=== PATIENT | female | born 1945 | race Caucasian/White ===

== ENCOUNTER 2017-04-07 02:36 | Observation (INO) ==
--- NOTE | 2017-04-07 02:37 | Emergency Department Note ---
Disposition Clinical Impression: Chest pain, rule out acute myocardial infarction Disposition: Admitted As Inpatient Condition: Fair General Adult HPI - General Chief complaint: ED Chest Pain Stated complaint: CP/DARION Time Seen by Provider: 04/07/17 02:37 - Related Data Home Medications Medication Instructions Recorded Confirmed Albuterol Neb [Proventil Neb] 2.5 mg IH Q4H PRN 01/05/16 01/05/16 Albuterol Sulfate [Proair Hfa] 2 puff IH Q6H PRN 01/05/16 01/05/16 Alendronate Sodium [Fosamax] 70 mg PO QWEEK 01/05/16 01/05/16 Calcium Carbonate/Vitamin D3 1 each PO BID 01/05/16 01/05/16 [Calcium 250+D Tablet] Docusate [Colace] 100 mg PO BID PRN 01/05/16 01/05/16 Fluticasone/Salmeterol [Advair 1 each IH BID 01/05/16 01/05/16 250-50 Diskus] Gabapentin [Neurontin] 600 mg PO TID 01/05/16 01/05/16 Montelukast [Singulair] 10 mg PO DAILY 01/05/16 01/05/16 Pravastatin Sodium [Pravachol] 40 mg PO DAILY 01/05/16 01/05/16 Sertraline [Zoloft] 200 mg PO DAILY 01/05/16 01/05/16 hydrOXYzine HCl [Hydroxyzine HCl] 12.5 - 50 mg PO Q6H PRN 01/05/16 01/05/16 traMADol [Ultram] 50 mg PO BID PRN 01/05/16 01/05/16 traZODone [TraZODone] 50 mg PO HS 01/05/16 01/05/16 Previous Rx's Medication Instructions Recorded Aspirin 81 mg PO DAILY #30 tab.chew 01/08/16 Clopidogrel [Plavix] 75 mg PO DAILY #30 tablet 01/08/16 Metoprolol XL (24 HR) Succ [Toprol 50 mg PO DAILY #30 tab.er.24h 01/08/16 Xl] Nicotine Patch [Nicoderm] 21 mg TD DAILY #21 patch.td24 01/08/16 Nitroglycerin 0.4 mg SL Q5MIN PRN #20 tab.subl 01/08/16 Allergies Allergy/AdvReac Type Severity Reaction Status Date / Time Oxycodone [From Percocet] AdvReac Itching Verified 01/05/16 20:41 Past Medical History - Past Medical History Medical history: Reports: arthritis, asthma, COPD, GERD, hyperlipidemia, hypertension, osteoporosis Surgical history: Reports: appendectomy Psychiatric history: Reports: anxiety, depression 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 - Social History Smoking Status: Current every day smoker Smokeless Tobacco Status: No Alcohol use: Reports: none Drug use: Reports: none Course Vital Signs Temperature 98.9 F 04/07/17 02:37 Pulse Rate 95 04/07/17 02:37 Respiratory Rate 18 04/07/17 02:37 Blood Pressure 135/79 04/07/17 02:37 O2 Sat by Pulse Oximetry 04/07/17 02:37 Temperature 98.9 F 04/07/17 05:57 Pulse Rate 04/07/17 02:37 Respiratory Rate 18 04/07/17 05:57 Blood Pressure 144/76 04/07/17 05:57 O2 Sat by Pulse Oximetry 04/07/17 02:37 Oxygen Delivery Oxygen Delivery Nasal Cannula Medical Decision Making - Lab Data Result diagrams: 04/07/17 03:25 04/07/17 03:25 Lab Results 04/07/17 04/07/17 04/07/17 Range/Units 03:25 03:25 03:25 WBC 10.3 (4.3-11.1) K/mcL RBC 4.70 (3.82-4.97) M/mcL Hgb 13.6 (11.5-15.4) g/dL Hct 42.2 (35.3-44.9) % MCV 89.8 (83.0-100.0) fL MCH 28.9 (28.0-33.3) pg MCHC 32.2 (31.6-35.5) g/dL RDW 12.4 (11.5-14.5) % Plt Count 247 (140-400) K/mcL MPV 10.6 (9.4-12.4) fL Immature Gran % 0.2 (0-4) % Seg Neutrophils % 66.6 % Lymphocytes % 21.5 % Monocytes % 9.5 % Eosinophils % 1.7 % Basophils % 0.5 % Neutrophils # 6.9 (1.6-8.9) K/mcL Lymphocytes # 2.2 (0.6-4.6) K/mcL Monocytes # 1.0 (0.0-1.3) K/mcL Eosinophils # 0.2 (0.0-0.6) K/mcL Basophils # 0.1 (0.0-0.2) K/mcL Sodium 138 (136-145) mEq/L Potassium 4.0 (3.5-4.5) mEq/L Chloride 103 (98-109) mEq/L Carbon Dioxide 27 (19-29) mEq/L BUN 8 (7-20) mg/dL Creatinine 0.90 (0.57-1.11) mg/dL Est GFR ( Amer) > 60 (> 60) Est GFR (Non-Af Amer) > 60 (> 60) BUN/Creatinine Ratio 9 (6-26) Glucose 97 (70-99) mg/dL Calculated Osmolality 284 (280-300) Calcium 9.2 (8.6-10.8) mg/dL Troponin I (0-0.03) ng/mL B-Natriuretic Peptide 216 H (0-100) pg/mL 04/07/17 Range/Units 03:25 WBC (4.3-11.1) K/mcL RBC (3.82-4.97) M/mcL Hgb (11.5-15.4) g/dL Hct (35.3-44.9) % MCV (83.0-100.0) fL MCH (28.0-33.3) pg MCHC (31.6-35.5) g/dL RDW (11.5-14.5) % Plt Count (140-400) K/mcL MPV (9.4-12.4) fL Immature Gran % (0-4) % Seg Neutrophils % % Lymphocytes % % Monocytes % % Eosinophils % % Basophils % % Neutrophils # (1.6-8.9) K/mcL Lymphocytes # (0.6-4.6) K/mcL Monocytes # (0.0-1.3) K/mcL Eosinophils # (0.0-0.6) K/mcL Basophils # (0.0-0.2) K/mcL Sodium (136-145) mEq/L Potassium (3.5-4.5) mEq/L Chloride (98-109) mEq/L Carbon Dioxide (19-29) mEq/L BUN (7-20) mg/dL Creatinine (0.57-1.11) mg/dL Est GFR ( Amer) (> 60) Est GFR (Non-Af Amer) (> 60) BUN/Creatinine Ratio (6-26) Glucose (70-99) mg/dL Calculated Osmolality (280-300) Calcium (8.6-10.8) mg/dL Troponin I 0.03 (0-0.03) ng/mL B-Natriuretic Peptide (0-100) pg/mL Attestation Statement - Attestation Attestation: I examined this patient and my medical decision-making was reviewed with the ELECTRICAL PROSPECTING ENGINEER/PA/Advanced Practice Nurse/Resident Physician. I agree with the documented findings, disposition and treatment plan as described except to the extent set forth below. [id number] time provided Patient presents from home by EMS for chest pain. She appears in no acute distress on exam
--- NOTE | 2017-04-07 02:45 | Emergency Department Note ---
Disposition Clinical Impression: Chest pain, rule out acute myocardial infarction Disposition: Admitted As Inpatient Condition: Fair Referrals: NO,PCP [Primary Care Provider] - Forms: ED Satisfaction Letter Chest Pain HPI - General Chief Complaint: ED Chest Pain Stated Complaint: CP/DARION Time Seen by Provider: 04/07/17 02:37 Vital Signs Reviewed: Yes Nursing Notes Reviewed: Yes - History of Present Illness HPI Narrative: 71-year-old female with a history of COPD and CAD with previous stent presents the emergency department with a chief complaint of abrupt onset chest pain. She was awake at home and developed acute chest tightness without radiation. She reports this being similar to her event that happened one year ago which she thinks was a heart attack and she had a catheterization with stent placement. After the pain began she took a nitroglycerin with some improvement. EMS provided 324 mg of aspirin and a second nitroglycerin tablet which again improved her symptoms. She had associated nausea without vomiting. She denies any diaphoresis. Denies any radiation to the back, ripping or tearing pain. Denies any new shortness of breath. Denies any history of blood clot or DVT. She continues to smoke cigarettes. She occasionally drinks vodka. - Related Data Home Medications Medication Instructions Recorded Confirmed Albuterol Neb [Proventil Neb] 2.5 mg IH Q4H PRN 01/05/16 01/05/16 Albuterol Sulfate [Proair Hfa] 2 puff IH Q6H PRN 01/05/16 01/05/16 Alendronate Sodium [Fosamax] 70 mg PO QWEEK 01/05/16 01/05/16 Calcium Carbonate/Vitamin D3 1 each PO BID 01/05/16 01/05/16 [Calcium 250+D Tablet] Docusate [Colace] 100 mg PO BID PRN 01/05/16 01/05/16 Fluticasone/Salmeterol [Advair 1 each IH BID 01/05/16 01/05/16 250-50 Diskus] Gabapentin [Neurontin] 600 mg PO TID 01/05/16 01/05/16 Montelukast [Singulair] 10 mg PO DAILY 01/05/16 01/05/16 Pravastatin Sodium [Pravachol] 40 mg PO DAILY 01/05/16 01/05/16 Sertraline [Zoloft] 200 mg PO DAILY 01/05/16 01/05/16 hydrOXYzine HCl [Hydroxyzine HCl] 12.5 - 50 mg PO Q6H PRN 01/05/16 01/05/16 traMADol [Ultram] 50 mg PO BID PRN 01/05/16 01/05/16 traZODone [TraZODone] 50 mg PO HS 01/05/16 01/05/16 Previous Rx's Medication Instructions Recorded Aspirin 81 mg PO DAILY #30 tab.chew 01/08/16 Clopidogrel [Plavix] 75 mg PO DAILY #30 tablet 01/08/16 Metoprolol XL (24 HR) Succ [Toprol 50 mg PO DAILY #30 tab.er.24h 01/08/16 Xl] Nicotine Patch [Nicoderm] 21 mg TD DAILY #21 patch.td24 01/08/16 Nitroglycerin 0.4 mg SL Q5MIN PRN #20 tab.subl 01/08/16 Allergies Allergy/AdvReac Type Severity Reaction Status Date / Time Oxycodone [From Percocet] AdvReac Itching Verified 01/05/16 20:41 All systems ED: reviewed and negative except as stated. Constitutional: Denies: fever Cardiovascular: Reports: chest pain. Denies: palpitations Respiratory: Reports: dyspnea (At baseline). Denies: cough Gastrointestinal: Reports: nausea. 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 S1, S2. No murmurs, rubs or gallops. Respiratory: Expiratory wheezing bilaterally without any respiratory distress. 95% on room air Abdomen: Soft, nontender. No guarding, rebound or rigidity. Eyes: Conjunctiva clear without scleral icterus HENT: Normocephalic, no signs of head injury. No oral mucosal lesions. Moist mucous membranes Neuro: No facial asymmetry, alert and appropriate. No motor or sensory deficits Musculoskeletal:There is no redness, swelling, edema, tenderness, asymmetry, pain along the venous system or any other sign of DVT. Skin: No lesions. No diaphoresis. Normal turgor. Normal color Psych: Appropriate Course Course Narrative: Presents with abrupt onset chest pain with known history of CAD. EKG shows a sinus rhythm with frequent previous CTs which are new from previous. Symptoms essentially resolved with nitroglycerin. EMS gave aspirin. I reviewed her heart catheterization from 12/2015 which shows multi vessel coronary disease including 90% in the distal LAD, 70% in the first diagonal, 80% mid circumflex and 50-60% and the proximal RCA. Her symptoms sound very concerning for ACS however her initial troponin was 0.03. She has been comfortable in the emergency department after nitroglycerin and pain free. Plan to admit for chest pain rule out. Patient stable at this time. Vital Signs Temperature 98.9 F 04/07/17 02:37 Pulse Rate 95 04/07/17 02:37 Respiratory Rate 18 04/07/17 02:37 Blood Pressure 135/79 04/07/17 02:37 O2 Sat by Pulse Oximetry 04/07/17 02:37 Temperature 98.9 F 04/07/17 02:37 Pulse Rate 95 04/07/17 02:37 Respiratory Rate 18 04/07/17 02:37 Blood Pressure 135/79 04/07/17 02:37 O2 Sat by Pulse Oximetry 04/07/17 02:37 Oxygen Delivery Oxygen Delivery Room Air Chest Pain - Lab Data Result diagrams: 04/07/17 03:25 04/07/17 03:25 Lab Results 04/07/17 04/07/17 04/07/17 Range/Units 03:25 03:25 03:25 WBC 10.3 (4.3-11.1) K/mcL RBC 4.70 (3.82-4.97) M/mcL Hgb 13.6 (11.5-15.4) g/dL Hct 42.2 (35.3-44.9) % MCV 89.8 (83.0-100.0) fL MCH 28.9 (28.0-33.3) pg MCHC 32.2 (31.6-35.5) g/dL RDW 12.4 (11.5-14.5) % Plt Count 247 (140-400) K/mcL MPV 10.6 (9.4-12.4) fL Immature Gran % 0.2 (0-4) % Seg Neutrophils % 66.6 % Lymphocytes % 21.5 % Monocytes % 9.5 % Eosinophils % 1.7 % Basophils % 0.5 % Neutrophils # 6.9 (1.6-8.9) K/mcL Lymphocytes # 2.2 (0.6-4.6) K/mcL Monocytes # 1.0 (0.0-1.3) K/mcL Eosinophils # 0.2 (0.0-0.6) K/mcL Basophils # 0.1 (0.0-0.2) K/mcL Sodium 138 (136-145) mEq/L Potassium 4.0 (3.5-4.5) mEq/L Chloride 103 (98-109) mEq/L Carbon Dioxide 27 (19-29) mEq/L BUN 8 (7-20) mg/dL Creatinine 0.90 (0.57-1.11) mg/dL Est GFR ( Amer) > 60 (> 60) Est GFR (Non-Af Amer) > 60 (> 60) BUN/Creatinine Ratio 9 (6-26) Glucose 97 (70-99) mg/dL Calculated Osmolality 284 (280-300) Calcium 9.2 (8.6-10.8) mg/dL Troponin I (0-0.03) ng/mL B-Natriuretic Peptide 216 H (0-100) pg/mL 04/07/17 Range/Units 03:25 WBC (4.3-11.1) K/mcL RBC (3.82-4.97) M/mcL Hgb (11.5-15.4) g/dL Hct (35.3-44.9) % MCV (83.0-100.0) fL MCH (28.0-33.3) pg MCHC (31.6-35.5) g/dL RDW (11.5-14.5) % Plt Count (140-400) K/mcL MPV (9.4-12.4) fL Immature Gran % (0-4) % Seg Neutrophils % % Lymphocytes % % Monocytes % % Eosinophils % % Basophils % % Neutrophils # (1.6-8.9) K/mcL Lymphocytes # (0.6-4.6) K/mcL Monocytes # (0.0-1.3) K/mcL Eosinophils # (0.0-0.6) K/mcL Basophils # (0.0-0.2) K/mcL Sodium (136-145) mEq/L Potassium (3.5-4.5) mEq/L Chloride (98-109) mEq/L Carbon Dioxide (19-29) mEq/L BUN (7-20) mg/dL Creatinine (0.57-1.11) mg/dL Est GFR ( Amer) (> 60) Est GFR (Non-Af Amer) (> 60) BUN/Creatinine Ratio (6-26) Glucose (70-99) mg/dL Calculated Osmolality (280-300) Calcium (8.6-10.8) mg/dL Troponin I 0.03 (0-0.03) ng/mL B-Natriuretic Peptide (0-100) pg/mL - EKG Data EKG results narrative: EKG shows a sinus rhythm with a rate of [address] elevation or depression. Intervals within normal limits. Frequent multifocal PVCs. Previous EKG shows similar wave morphology however PVCs were not present.
[2017-04-07 03:54] LABS: Basophils # 0.1 K/mcL (0.0-0.2); Basophils % 0.5 %; Eosinophils # 0.2 K/mcL (0.0-0.6); Eosinophils % 1.7 %; Hematocrit 42.2 % (35.3-44.9); Hemoglobin 13.6 g/dL (11.5-15.4); Immature Granulocytes % 0.2 % (0-4); Lymphocytes # 2.2 K/mcL (0.6-4.6); Lymphocytes % 21.5 %; Mean Corpuscular HGB Conc 32.2 g/dL (31.6-35.5); Mean Corpuscular Hemoglobin 28.9 pg (28.0-33.3); Mean Corpuscular Volume 89.8 fL (83.0-100.0); Mean Platelet Volume 10.6 fL (9.4-12.4); Monocytes % 9.5 %; Neutrophils # 6.9 K/mcL (1.6-8.9); Platelet Count 247 K/mcL (140-400); Red Cell Distribution Width 12.4 % (11.5-14.5); Segmented Neutrophils % 66.6 %
[2017-04-07 04:26] LABS: BUN/Creatinine Ratio 9 (6-26); Blood Urea Nitrogen 8 mg/dL (7-20); Calcium 9.2 mg/dL (8.6-10.8); Carbon Dioxide 27 mEq/L (19-29); Chloride 103 mEq/L (98-109); Glucose 97 mg/dL (70-99); Osmolality,Calculated 284 (280-300); Sodium 138 mEq/L (136-145); eGFR For African Americans > 60 (> 60); eGFR For Non-African Americans > 60 (> 60)
[2017-04-07] MEDS ORDERED: Naloxone 0.4 MG/ML INJ IVP PRN (08:37)
[2017-04-07] MEDS ORDERED: Ondansetron 4 MG/2 ML VIAL IVP PRN (08:37)
[2017-04-07] MEDS ORDERED: Acetaminophen 325 MG TABLET PO PRN (08:37)
[2017-04-07] MEDS ORDERED: Nitroglycerin 0.4 MG TAB.SUBL SL PRN ×2 (08:39→10:47)
[2017-04-07] MEDS ORDERED: Nicotine 21 MG PATCH.TD24 TD SCH (09:00)
--- NOTE | 2017-04-07 10:38 | Internal Med History&Physical ---
Date of Encounter: 04/07/17 Time of Encounter: 10:35 Assessment and Plan (1) Coronary artery disease Current visit: Yes Status: Acute Patient with known history of coronary artery disease with substernal chest pain at rest improved with nitroglycerin consistent with unstable angina. We will place patient on telemetry. Trend troponin. Consult cardiology. We will keep her nothing by mouth for possible stress test versus cardiac catheter. We will continue with aspirin beta elvin and statin. Qualifiers: Coronary Disease-Associated Artery/Lesion type: [place] artery [place] vs. transplanted heart: [place] heart Associated angina: with unstable angina Qualified Code(s): I25.110 - Atherosclerotic heart disease of [place] coronary artery with unstable angina pectoris (2) COPD (chronic obstructive pulmonary disease) Current visit: Yes Status: Acute Patient reports no worsening shortness of breath cough or sputum production. No evidence of acute exacerbation. We will treat her with inhaled albuterol and Atrovent. Qualifiers: COPD type: chronic bronchitis Chronic bronchitis type: simple Qualified Code(s): J41.0 - Simple chronic bronchitis (3) Chest pain, rule out acute myocardial infarction Current visit: Yes Status: Acute Likely secondary to coronary heart disease. She had an MO and stent placed in December 2015 and her EF was 35% of the time. We will monitor on telemetry, trend troponin. Obtain repeat echocardiogram. (4) Tobacco abuse Current visit: No Status: Acute I have advised smoking cessation and provided counseling. She does not want nicotine replacement therapy. Internal Medicine - H&P: HPI Chief complaint: Chest pain Admitted From: Emergency Dept Plans for Post Hospital Care: Home History of present illness: Ms. Ronquillo is a 71 year old female with past medical history significant for coronary artery disease status post MO and stent placement in December 2016, COPD and tobacco abuse who presented to the hospital for evaluation of chest pain. 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 The pain started at rest. She currently states that the pain has resolved. She denies shortness of breath, nausea, vomiting, diarrhea. A 10 point review of systems was negative except as above. Family history was reviewed and found to be noncontributory to this presentation due to the patient's advanced age. Past Med Surg Social Fam HX - Past Medical History Medical history: arthritis, asthma, COPD, GERD, hyperlipidemia, hypertension, osteoporosis Psychiatric history: anxiety, depression - Past Surgical History Surgical History: appendectomy - Social History Smoking Status: Current every day smoker Packs per day: 1 Smokeless Tobacco Status: No Alcohol use: none, occasionally Drug use: none - Family History Father Living Status: Hx Family Cardiac Disorders: Yes Internal Medicine - H&P: Meds Albuterol Neb [Proventil Neb] 2.5 mg IH Q4H PRN 01/05/16 [History] Albuterol Sulfate [Proair Hfa] 2 puff IH Q6H PRN 01/05/16 [History] Alendronate Sodium [Fosamax] 70 mg PO QWEEK 01/05/16 [History] Calcium Carbonate/Vitamin D3 [Calcium 250+D Tablet] 1 tab PO BID 01/05/16 [ History] Docusate [Colace] 100 mg PO BID PRN 01/05/16 [History] Fluticasone/Salmeterol [Advair 250-50 Diskus] 1 puff IH BID 01/05/16 [History] Gabapentin [Neurontin] 600 mg PO TID 01/05/16 [History] Montelukast [Singulair] 10 mg PO DAILY 01/05/16 [History] Sertraline [Zoloft] 100 mg PO DAILY 01/05/16 [History] hydrOXYzine HCl [Hydroxyzine HCl] 12.5 - 50 mg PO Q6H PRN 01/05/16 [History] traMADol [Ultram] 50 mg PO BID PRN 01/05/16 [History] traZODone [TraZODone] 50 mg PO HS 01/05/16 [History] Aspirin 81 mg PO DAILY #30 tab.chew 01/08/16 [Rx] Clopidogrel [Plavix] 75 mg PO DAILY #30 tablet 01/08/16 [Rx] Metoprolol XL (24 HR) Succ [Toprol Xl] 50 mg PO DAILY #30 tab.er.24h 01/08/16 [ Rx] Nitroglycerin 0.4 mg SL Q5MIN PRN #20 tab.subl 01/08/16 [Rx] Atorvastatin [Lipitor] 40 mg PO HS 04/07/17 [History] Dextran 70/Hypromellose [Artificial Tears Eye Drops] 1 drop BOTH EYES DAILY [History] Losartan [Cozaar] 25 mg PO DAILY 04/07/17 [History] [place]-3/Dha/Epa/Fish Oil [Fish Oil 1,000 mg Softgel] 1,000 mg PO DAILY 04/07/17 [History] Polyethylene Glycol 3350 [Purelax] 17 gm PO DAILY 04/07/17 [History] Allergies Oxycodone [From Percocet] Adverse Reaction (Verified 01/05/16 20:41) Itching All Systems PM: A 10-system review of systems was performed and is negative for pertinent findings except as documented above in the HPI. - Constitutional Vitals: Temp Pulse Resp BP Pulse Ox 97.9 F 75 15 134/96 96 04/07/17 07:22 04/07/17 07:22 04/07/17 07:22 04/07/17 07:22 04/07/17 07:22 General appearance: Present: A&O X 3, no acute distress - Neck Neck exam general surgery: Present: supple, trachea midline. Absent: lymphadenopathy - Cardiovascular Cardiovascular exam: Present: RRR, +S1, +S2. Absent: diastolic murmur, gallop, rubs, systolic murmur - GI/Abdominal GI/Abdominal exam: Present: normal bowel sounds, soft, no peritoneal signs. Absent: distended, tenderness - Extremities Exam Extremities exam: Present: warm, radial pulses palpable and symetrical. Absent : calf tenderness, cyanotic, pedal edema - Neurological Exam Neurological exam: Present: CN II-XII intact, oriented X3, no focal deficits. Absent: pronater drift, facial droop, speech deficit - Skin Skin exam: Present: dry, intact Internal Med - H&P Results - Labs CBC & Chem 7: 04/07/17 03:25 04/07/17 03:25 Labs: Cardiac Enzymes 04/07/17 Range/Units 09:35 Troponin I 0.01 (0-0.03) ng/mL - EKG Data -: EKG Interpreted by Myself (Normal sinus rhythm with frequent monomorphic PVCs , no ischemic changes) EKG shows normal: sinus rhythm, axis, ST-T waves
[2017-04-07] MEDS ORDERED: traMADol 50 MG TABLET PO PRN (10:47)
[2017-04-07] MEDS: Metoprolol XL (24 HR) Succ 50 MG TAB.ER.24H PO SCH (11:31)
[2017-04-07] MEDS: Aspirin 81 MG TAB.CHEW PO SCH (11:31)
[2017-04-07] MEDS: Gabapentin 300 MG CAPSULE PO SCH ×2 (15:47→21:35)
[2017-04-07] MEDS: Nicotine 21 MG PATCH.TD24 TD SCH (15:47)
--- NOTE | 2017-04-07 16:03 | Cardiology Consult Note ---
Date of Encounter: 04/07/17 Time of Encounter: 15:56 Assessment and Plan (1) Unstable angina Current Visit: Yes Status: Acute This is a resident progress note pending review by attending tester waste disposal leakage Patient symptoms are consistent with unstable angina Troponin-I: 0.03, 0.01 Patient's vital signs are stable and she is clinically stable Recommend cardiac stress test Discussion w patient/family: The assessment and plan as outlined above was discussed with the patient and/or family members who expressed understanding and agreement. All questions were answered. Thank you for involving us in the care of your patient. Please call with any questions. History of Present Illness Consult date: 04/07/17 Consult reason: Unstable Angina Chief complaint: Chest Pain History of present illness: Ms. Ronquillo is a 71 year old female with a past history of MD + stent December 2015 , COPD, current smoker who came to the ER because she was having substernal chest pain at rest early this morning, 4/10, pressure, no radiation. She took 2 of her nitroglycerin pills without significant improvement and called the squad. Subsequent nitroglycerin and aspirin were given and her chest pain improved significantly. She does relate that she has been having similar chest pain, although not as severe, for the past few months seems to have been worsening somewhat. She follows with [facility], Dr. Sheets. . Patient was seen and examined at bedside and denies chest pain, palpitations, shortness of breath, or other new symptoms since arriving at the hospital. Past Med Surg Social Fam HX - Past Medical History Medical history: arthritis, asthma, COPD, GERD, hyperlipidemia, hypertension, osteoporosis Psychiatric history: anxiety, depression - Past Surgical History Surgical History: appendectomy - Social History Smoking Status: Current every day smoker Packs per day: 1 Smokeless Tobacco Status: No Alcohol use: none, occasionally Drug use: none - Family History Father Living Status: Hx Family Cardiac Disorders: Yes Medications and Allergies Albuterol Neb [Proventil Neb] 2.5 mg IH Q4H PRN 01/05/16 [History] Albuterol Sulfate [Proair Hfa] 2 puff IH Q6H PRN 01/05/16 [History] Alendronate Sodium [Fosamax] 70 mg PO QWEEK 01/05/16 [History] Calcium Carbonate/Vitamin D3 [Calcium 250+D Tablet] 1 tab PO BID 01/05/16 [ History] Docusate [Colace] 100 mg PO BID PRN 01/05/16 [History] Fluticasone/Salmeterol [Advair 250-50 Diskus] 1 puff IH BID 01/05/16 [History] Gabapentin [Neurontin] 600 mg PO TID 01/05/16 [History] Montelukast [Singulair] 10 mg PO DAILY 01/05/16 [History] Sertraline [Zoloft] 100 mg PO DAILY 01/05/16 [History] hydrOXYzine HCl [Hydroxyzine HCl] 12.5 - 50 mg PO Q6H PRN 01/05/16 [History] traMADol [Ultram] 50 mg PO BID PRN 01/05/16 [History] traZODone [TraZODone] 50 mg PO HS 01/05/16 [History] Aspirin 81 mg PO DAILY #30 tab.chew 01/08/16 [Rx] Clopidogrel [Plavix] 75 mg PO DAILY #30 tablet 01/08/16 [Rx] Metoprolol XL (24 HR) Succ [Toprol Xl] 50 mg PO DAILY #30 tab.er.24h 01/08/16 [ Rx] Nitroglycerin 0.4 mg SL Q5MIN PRN #20 tab.subl 01/08/16 [Rx] Atorvastatin [Lipitor] 40 mg PO HS 04/07/17 [History] Dextran 70/Hypromellose [Artificial Tears Eye Drops] 1 drop BOTH EYES DAILY [History] Losartan [Cozaar] 25 mg PO DAILY 04/07/17 [History] [place]-3/Dha/Epa/Fish Oil [Fish Oil 1,000 mg Softgel] 1,000 mg PO DAILY 04/07/17 [History] Polyethylene Glycol 3350 [Purelax] 17 gm PO DAILY 04/07/17 [History] Allergies Oxycodone [From Percocet] Adverse Reaction (Verified 01/05/16 20:41) Itching All Systems Review: A 10-system review of systems was performed and is negative for pertinent findings except as documented above in the HPI. - Constitutional Constitutional: no chills, no fever(s) - Cardiovascular Cardiovascular: no chest pain at rest, no chest pain with exertion, no diaphoresis, no dyspnea at rest, no dyspnea on exertion, no leg edema, no lightheadedness, no syncope - Respiratory Respiratory: no cough, no dyspnea, no hemoptysis, no wheezing Physical Examination Vital Signs, Last 4 Hours Temp Pulse Resp BP Pulse Ox 04/07/17 15:10 98.2 F 68 15 136/81 87 General: Conversant, No Apparent Distress Cardiac: Reg Rate and Rhythm, Normal S1 and S2, No Murmur Lungs: Normal Breath Sounds, No Wheeze, Rales, Rhonchi Extremities: No Clubbing, No Cyanosis, No Edema, Normal Pulses Results 04/07/17 03:25 04/07/17 03:25 Lab Results 04/07/17 04/07/17 09:35 15:10 Troponin I 0.01 0.01 Consult Discharge Plan - Plan Referrals: NO,PCP [Primary Care Provider] -
[2017-04-07] MEDS ORDERED: traZODone 50 MG TABLET PO SCH (21:00)
[2017-04-07] MEDS: Budesonide/Formoterol 80/4.5 MDI IH SCH (22:44)
[2017-04-08 06:54] LABS: Basophils % 0.6 %; Eosinophils # 0.2 K/mcL (0.0-0.6); Eosinophils % 2.8 %; Hematocrit 41.1 % (35.3-44.9); Immature Granulocytes % 0.3 % (0-4); Lymphocytes # 1.8 K/mcL (0.6-4.6); Lymphocytes % 27.7 %; Mean Corpuscular HGB Conc 31.6 g/dL (31.6-35.5); Mean Corpuscular Hemoglobin 29.5 pg (28.0-33.3); Mean Corpuscular Volume 93.2 fL (83.0-100.0); Mean Platelet Volume 11.1 fL (9.4-12.4); Monocytes # 0.7 K/mcL (0.0-1.3); Monocytes % 10.3 %; Neutrophils # 3.7 K/mcL (1.6-8.9); Platelet Count 218 K/mcL (140-400); Red Blood Count 4.41 M/mcL (3.82-4.97); Red Cell Distribution Width 12.7 % (11.5-14.5); Segmented Neutrophils % 58.3 %
[2017-04-08 07:11] LABS: Calcium 9.4 mg/dL (8.6-10.8); Magnesium 1.9 mg/dL (1.6-2.6); Potassium 4.6 mEq/L (3.5-4.5)
[2017-04-08] MEDS ORDERED: 0.9 % Sodium Chloride 1,000 ML IVC SCH (09:00)
[2017-04-08] MEDS: Budesonide/Formoterol 80/4.5 MDI IH SCH (09:01)
[2017-04-08] MEDS ORDERED: Regadenoson 0.4 MG/5 ML SYRINGE IVP ONE (09:13)
[2017-04-08 11:37] VITALS: BP 125/49
[2017-04-08] MEDS: Metoprolol XL (24 HR) Succ 50 MG TAB.ER.24H PO SCH (11:59)
[2017-04-08] MEDS: Aspirin 81 MG TAB.CHEW PO SCH (11:59)
[2017-04-08] MEDS: Gabapentin 300 MG CAPSULE PO SCH (11:59)
[2017-04-08] MEDS: Nicotine 21 MG PATCH.TD24 TD SCH (11:59)
--- NOTE | 2017-04-08 12:37 | Electrocardiograph Report ---
[place] [id number] Test Date: 2017-04-07 Pat Name: Krysten Ronquillo Department: 105 Room: 3B Gender: F Inspecting Supervisor: YULIA : 1945 Requested By: Reggie Balbuena Order Number: [id number] Reading MD: Raciel Eagle Measurements Intervals [place] Rate: 90 P: 61 OK: 201 QRS: 37 QRSD: 81 T: 58 QT: 350 QTc: 398 Interpretive Statements SINUS RHYTHM WITH FREQUENT VENTRICULAR PREMATURE COMPLEXES POSSIBLE RIGHT VENTRICULAR CONDUCTION DELAY ABNORMAL RHYTHM ECG Electronically Signed On 04-08-2017 12:36:01 EDT by Raciel Eagle
--- NOTE | 2017-04-08 12:53 | Nuclear Medicine Stress Report ---
Regadenoson Nuclear Stress Name: Krysten Ronquillo Date of Study: 04/08/2017 Date: 1945 Ht: 51.0 in Medical Record#: [id number] Age: 71 Wt: 98.0 lb Gender: Female Order #: [id number] Location: [facility] Room: [facility] Supervising Provider: Mayur Sorensen CNP Reading Physician: Marcin Simons DO, FAC, [facility] Ordering Physician: Vanessa Perez CNP Primary Care Physician: None Stress Technologist: Jany Carter, CNC CUTTING OPERATOR Grease Remover: Flaquito Calixto Indications: Chest Pain Impression: Pharmacologic stress ECG is negative for ischemia at level of heart rate achieved. Gated EF = 73%. Medium sized, mild to moderate intensity, fixed defect involving the apex and surrounding apical segments. Wall motion is normal. These findings are consistent with artifact. Perfusion imaging was negative for ischemia or infarct. History: Hypertension Hypercholesteremia History of Smoking Stress Test Summary: Stress Test Type: Pharmacologic Regadenoson 0.4mg/5ml given IV Baseline Information: Initial Heart Rate: 57 Blood Pressure: 110/60 Stress Information: Test Terminated Due to (primary): As per protocol Maximum Blood Pressure: 94/58 Maximum Heart Rate: 78 Percent Maximum Heart Rate Achieved: 52 Double Product: 7332 METS Reached: 1 Symptoms: No chest symptoms Nuclear Summary: SPECT myocardial perfusion imaging using Tc99m Sestamibi given intravenously was performed at rest and following cardiac stress testing. The resting images were obtained following initial dose of 11 mCi. Following stress an additional dose of 32.8 mCi was given at peak exercise or 30 seconds post regadenoson infusion. Medication Given: Time Medication Dose Units Route Findings: Stress Note * Resting ECG demonstrated normal sinus rhythm. * No baseline arrhythmias were noted. * Pharmacologic stress ECG is negative for ischemia at level of heart rate achieved. * Occasional PVCs noted during stress. * Patient had no chest pain during stress. * Normal hemodynamic responses to pharmacologic stress. Study Quality * Study quality is average. Gated EF % * Gated EF = 73%. Left Ventricle * The left ventricle is not dilated. LVEDV = 56 mL. * Normal wall motion. Apical Perfusion Rest * The apex and surrounding apical segments demonstrate a mild to moderate reduction in perfusion. Apical Perfusion Stress * The apex and surrounding apical segments demonstrate a mild to moderate reduction in perfusion. TID * No evidence of transient ischemic dilatation. TID ratio = 1.29. Lung Uptake * There is no evidence of increase lung uptake. Updated by Marcin Simons DO, FARZANA, BASSAM, GAYLE on 04/08/2017 12:48:26 PM electronically signed on 04/08/2017 12:49:53 PM with status of Final
--- NOTE | 2017-04-08 13:04 | Cardiology Progress Note ---
Date of Encounter: 04/08/17 Time of Encounter: 13:01 Assessment and Plan (1) Chest pain, rule out acute myocardial infarction Current Visit: Yes Status: Acute Troponin negative x 2. EKG with no concerning ischemic changes. Typical chest pain symptoms described on admission. Now chest pain free. Stress test negative for ischemia or infarct. TTE shows improved LV function from previous report. EF 55% with SWMA. In December 2015 EF was 35% Continue medical management. Continue asa,plavix, statin, and bb. Add imdur. Cardiology will sign off. Out-pt f/u will be coordinated. (2) Coronary artery disease Current Visit: Yes Status: Acute H/o [place] and stents in December 2015. [facility] 12/2015: severe one vessel CAD s/p PTCA/BMS to proximal Right PLB. Moderate to severe two vessel CAD. EF 35%. FFR: 0.92 prox LAD, 0.93 prox RCA, 0.69 Right PLB (without adenosine). Echo 12/2015: EF 35-40% with regional wall motion abnormalities. Continue asa, plavix, statin and bb. Add imdur. Consider social work consult. Pt is not clear on what medications she is taking. Consider home health. Qualifiers: Coronary Disease-Associated Artery/Lesion type: [place] artery [place] vs. transplanted heart: [place] heart Associated angina: with unstable angina Qualified Code(s): I25.110 - Atherosclerotic heart disease of [place] coronary artery with unstable angina pectoris (3) Ischemic cardiomyopathy Current Visit: Yes Status: Acute EF previously 35% with WMA and now improved to 55%. Continue optimal medical therapy. Discussion w patient/family: The assessment and plan as outlined above was discussed with the patient and/or family members who expressed understanding and agreement. All questions were answered. Thank you for involving us in the care of your patient. Please call with any questions. Subjective Principal diagnosis: Chest pain Interval history: Patient seen in stress lab. Denies recurrent chest pain. She tells me she is able to take all of her prescribed medications as directed. She just cannot remember the names of them Objective Vital Signs, Last 4 Hours Temp Pulse Resp BP Pulse Ox 04/08/17 11:37 98.2 F 83 16 125/49 93 General: Conversant, No Apparent Distress HEENT: Atraumatic, Normocephaly, Mucus Membranes Moist Neck: No JVD, Normal carotid pulses Cardiac: Reg Rate and Rhythm, Normal S1 and S2, No Murmur Lungs: Normal Breath Sounds, No Wheeze, Rales, Rhonchi Neuro: Alert and responsive, No focal deficits noted Abdomen: Soft, Non-Tender Skin: No rashes noted on visualized skin Musculoskeletal: No Chest Wall Tenderness Extremities: No Clubbing, No Cyanosis, No Edema, Normal Pulses Results 04/08/17 05:53 04/08/17 05:53 Lab Results 04/07/17 04/08/17 04/08/17 15:10 05:53 05:53 WBC 6.4 Hgb 13.0 Hct 41.1 Plt Count 218 Sodium 138 Potassium 4.6 H Chloride 103 Carbon Dioxide 29 BUN 12 Creatinine 1.23 H Glucose 96 Calcium 9.4 Magnesium 1.9 Troponin I 0.01 - Imaging and Cardiology Stress Test: report reviewed Echo: report reviewed Consult Discharge Plan - Plan Referrals: NO,PCP [Primary Care Provider] -
[2017-04-08] MEDS ORDERED: Isosorbide MONOnitrate (24 HR) 30 MG TAB.ER.24H PO SCH (13:15)
--- NOTE | 2017-04-08 14:25 | Discharge Summary ---
Date of Encounter: 04/08/17 Time of Encounter: 13:30 - Discharge Diagnosis (1) Chest pain Priority: Primary Status: Resolved Comments: Patient denied chest pain on day of discharge. Echocardiogram revealing improved ejection fraction with impaired prior reports with ejection fraction of 55% and mild diastolic dysfunction. Patient euvolemic on examination. Seen and evaluated by cardiology who added Imdur to her regimen and cleared her for outpatient follow-up. Stress is negative. (2) Ischemic cardiomyopathy Priority: Secondary Status: Chronic (3) Coronary artery disease Priority: Secondary Status: Chronic Qualifiers: Coronary Disease-Associated Artery/Lesion type: [place] artery [place] vs. transplanted heart: [place] heart Associated angina: with unstable angina Qualified Code(s): I25.110 - Atherosclerotic heart disease of [place] coronary artery with unstable angina pectoris (4) COPD (chronic obstructive pulmonary disease) Priority: Secondary Status: Chronic Comments: No acute exacerbation. Patient denies shortness of breath above her normal Qualifiers: COPD type: chronic bronchitis Chronic bronchitis type: simple Qualified Code(s): J41.0 - Simple chronic bronchitis (5) HTN (hypertension) Priority: Secondary Status: Chronic Comments: Controlled, follow-up outpatient (6) Nicotine dependence with nicotine-induced disorder Priority: Secondary Status: Chronic Comments: Declined counseling - Discharge Medications Prescriptions: Isosorbide MONOnitrate (24 HR) [Imdur] 30 mg PO DAILY #30 tab.er.24h Home Medications: Albuterol Neb [Proventil Neb] 2.5 mg IH Q4H PRN 01/05/16 [History] Albuterol Sulfate [Proair Hfa] 2 puff IH Q6H PRN 01/05/16 [History] Alendronate Sodium [Fosamax] 70 mg PO QWEEK 01/05/16 [History] Calcium Carbonate/Vitamin D3 [Calcium 250+D Tablet] 1 tab PO BID 01/05/16 [ History] Docusate [Colace] 100 mg PO BID PRN 01/05/16 [History] Fluticasone/Salmeterol [Advair 250-50 Diskus] 1 puff IH BID 01/05/16 [History] Gabapentin [Neurontin] 600 mg PO TID 01/05/16 [History] Montelukast [Singulair] 10 mg PO DAILY 01/05/16 [History] Sertraline [Zoloft] 100 mg PO DAILY 01/05/16 [History] hydrOXYzine HCl [Hydroxyzine HCl] 12.5 - 50 mg PO Q6H PRN 01/05/16 [History] traMADol [Ultram] 50 mg PO BID PRN 01/05/16 [History] traZODone [TraZODone] 50 mg PO HS 01/05/16 [History] Aspirin 81 mg PO DAILY #30 tab.chew 01/08/16 [Rx] Clopidogrel [Plavix] 75 mg PO DAILY #30 tablet 01/08/16 [Rx] Metoprolol XL (24 HR) Succ [Toprol Xl] 50 mg PO DAILY #30 tab.er.24h 01/08/16 [ Rx] Nitroglycerin 0.4 mg SL Q5MIN PRN #20 tab.subl 01/08/16 [Rx] Atorvastatin [Lipitor] 40 mg PO HS 04/07/17 [History] Dextran 70/Hypromellose [Artificial Tears Eye Drops] 1 drop BOTH EYES DAILY [History] Losartan [Cozaar] 25 mg PO DAILY 04/07/17 [History] [place]-3/Dha/Epa/Fish Oil [Fish Oil 1,000 mg Softgel] 1,000 mg PO DAILY 04/07/17 [History] Polyethylene Glycol 3350 [Purelax] 17 gm PO DAILY 04/07/17 [History] Isosorbide MONOnitrate (24 HR) [Imdur] 30 mg PO DAILY #30 tab.er.24h 04/08/17 [ Rx] Allergies/Adverse Reactions: Allergies Oxycodone [From Percocet] Adverse Reaction (Verified 01/05/16 20:41) Itching Procedures/tests Complete & Pending: Procedures Performed prior 72 hours Category Date Time Status NM yoel perf SPECT multi [NM] Routine Exams 04/08/17 08:56 Taken EV echocardiogram Routine Y 04/07/17 10:47 Completed SP pharm nuclear stress Routine Y 04/08/17 08:56 Completed Date of admission: 04/07/17 05:28 Primary care physician: PCP NO Consults: 04/07/17 10:34 Consult to Cardiology [CONS] Routine Comment: Consulting Provider: Cardiology Desi Reason for Consult: Unstable angina Time Notified: 10:35 Call Completed: Yes Discharging clinician: Vanessa Perez Anticipated date of discharge: 04/08/17 - Patient Status Disposition: Home, Self-Care Condition: Fair Functional capacity at discharge: independent ambulation Overall status at discharge: patient is back to baseline - Discharge Instructions Follow Up With: Crystal Connell [Non-Partnered Physician] - Phillip Sheets MD [Partnered Physician] - Additional Instructions: Follow-up with your primary care provider within one to 2 weeks, follow-up with cardiology in 2-3 weeks - Diet and Activity Activity: increase activity as tolerated Diet: low fat, low cholesterol, low salt diet Hospital course: Ms. Ronquillo is a 71 year old female with past medical history of CAD status post stent, COPD, tobacco abuse, GERD, hypertension, hyperlipidemia. Patient presented to the emergency department chief complaint of chest pain. She had an [facility] and a stent placed in December 2016. She reported sudden onset of pressure- like and burning substernal chest pain that started on the morning of presentation and lasted approximately 30 minutes and was associated with lightheadedness. The pain started at rest. Pain had resolved prior to presentation. She denies shortness of breath, nausea, vomiting, or diarrhea. Workup in the emergency department unremarkable. Chest x-ray negative. Patient was admitted to the hospitalist service for further evaluation and management. Troponins were negative nuclear stress test was negative. Her echocardiogram revealed an improvement in her ejection fraction now at 55%, was 35% on prior readings. Patient had mild acute kidney injury during this admission which was treated with IV fluids and her arb was held. She denied chest pain or shortness of breath above her normal throughout this admission. Cardiology was brought on board who recommended medical management with the addition of Imdur to her regimen and cleared her for outpatient follow-up. She was discharged home in stable condition with close outpatient follow-up recommended. ITS Impressions Chest X-Ray 04/07/17 02:54 IMPRESSION: No acute disease. Hiatal hernia. D/ / Dimitri Brown MD / Dimitri Brown MD Interpreting Provider: Dimitri Brown MD Echocardiogram impressions: LVEF 55%. Normal LV chamber size, wall thickness and overall function. Segmental left ventricular systolic dysfunction. Mild left ventricular diastolic dysfunction. Normal right ventricular structure and function. Mild pulmonary hypertension. No significant valvular dysfunction. Overall, LV function has improved compared to prior reports. Regadenosen nuclear stress impression: Pharmacologic stress ECG is negative for ischemia at level heart rate achieved. Gated ejection fraction equals 73%. Medium size, mild to moderate intensity, fixed defect involving the apex and surrounding the apical segments. Wall motion is normal. These findings are consistent with artifact. Perfusion imaging was negative for ischemia or infarct. - Time Spent with Patient Total time spent providing and/or coordinating discharge services: - Constitutional Vitals: Temp Pulse Resp BP Pulse Ox 98.2 F 83 16 125/49 93 04/08/17 11:37 04/08/17 11:37 04/08/17 11:37 04/08/17 11:37 04/08/17 11:37 General appearance: Present: A&O X 3, pleasant, no acute distress, underweight, answers questions appropriately - Head Head exam: Present: atraumatic, normocephalic - Eye Eye exam: Present: PERRL, conjuntiva pink, sclera anicteric Pupils: Present: PERRL - Neck Neck exam general surgery: Present: supple, trachea midline. Absent: lymphadenopathy - Respiratory Respiratory exam: Present: decreased breath sounds. Absent: accessory muscle use, rales, respiratory distress, rhonchi, wheezes - Cardiovascular Cardiovascular exam: Present: RRR, +S1, +S2. Absent: diastolic murmur, gallop, rubs, systolic murmur - GI/Abdominal GI/Abdominal exam: Present: normal bowel sounds, soft, no peritoneal signs. Absent: distended, tenderness - Extremities Exam Extremities exam: Present: warm, radial pulses palpable and symetrical. Absent : calf tenderness, cyanotic, pedal edema - Neurological Exam Neurological exam: Present: alert, CN II-XII intact, normal gait, oriented X3, no focal deficits, strengths equal and symetr throughout. Absent: pronater drift, facial droop, speech deficit - Skin Skin exam: Present: dry, intact, normal color, warm
== END 2017-04-08 15:23 | disposition home or self-care (01) ==
LOC: 3BNU 02:36 → EMEROO 02:36 → 3BNU 07:00
PROVIDERS: ADMIT Internal Medicine; ATTEND Nurse Practitioner Family

== ENCOUNTER 2018-10-29 03:38 | Inpatient (IN) ==
[2018-10-29] MEDS ORDERED: predniSONE 20 MG TABLET PO ONE (03:47)
[2018-10-29] MEDS ORDERED: 0.9 % Sodium Chloride 1,000 ML IVC ONE (03:47)
[2018-10-29] MEDS ORDERED: Ipratropium/Albuterol Neb 3 ML IH ONE (03:47)
--- NOTE | 2018-10-29 03:52 | Emergency Department Note ---
Disposition Clinical Impression: Weakness, Laceration COPD (chronic obstructive pulmonary disease) Qualifiers: COPD type: unspecified COPD Qualified Code(s): J44.9 - Chronic obstructive pulmonary disease, unspecified Hypertension Qualifiers: Hypertension type: unspecified Qualified Code(s): I10 - Essential (primary) hypertension Fall Qualifiers: Encounter type: initial encounter Qualified Code(s): W19.XXXA - Unspecified fall, initial encounter Disposition: Admitted As Inpatient Condition: Fair Time of Disposition: 06:23 General Adult HPI - General Chief complaint: ED Weakness Stated complaint: General Time Seen by Provider: 10/29/18 03:41 Source: patient Mode of arrival: ambulatory Limitations: no limitations Nursing Notes Reviewed: Yes Vital Signs Reviewed: Yes - History of Present Illness HPI Narrative: 72-year-old female with a history of hypertension, COPD, CAD presents for evaluation of dyspnea. Patient presents via EMS. EMS state that the patient is complaining of shortness of breath. Patient does not provide an accurate history. States that she feels short of breath today. Patient denies any productive cough. Denies history of any chest pain. Patient denies any abdominal pain. No nausea or vomiting. Patient states he does have breathing treatments at home. EMS reported the patient was complaining that she is having difficulty walking however was able to walk to the stretcher. Patient was placed on oxygen. No interventions in route otherwise. Patient does live at home by herself. - Related Data Home Medications Medication Instructions Recorded Confirmed RX: Albuterol Neb [Proventil Neb] 2.5 mg IH Q4H PRN 01/05/16 10/29/18 RX: Albuterol Sulfate [Proair Hfa] 2 puff IH Q6H PRN 01/05/16 10/29/18 RX: Calcium Carbonate/Vitamin D3 1 tab PO BID 01/05/16 10/29/18 [Calcium 250+D Tablet] RX: Fluticasone/Salmeterol [Advair 1 puff IH BID 01/05/16 10/29/18 250-50 Diskus] RX: Atorvastatin [Lipitor] 40 mg PO HS 04/07/17 10/29/18 RX: Bupropion HCl [Wellbutrin Xl] 300 mg PO DAILY 07/03/18 10/29/18 RX: Memantine HCl 10 mg PO DAILY 07/03/18 10/29/18 RX: Multivitamin [One Daily 1 each PO DAILY 07/03/18 10/29/18 Essential] RX: Donepezil [Aricept] 10 mg PO DAILY 10/29/18 10/29/18 predniSONE [PredniSONE] 5 - 40 mg PO AD 10/29/18 10/29/18 Previous Rx's Medication Instructions Recorded RX: Aspirin 81 mg PO DAILY #30 tab.chew 01/08/16 RX: Clopidogrel [Plavix] 75 mg PO DAILY #30 tablet 01/08/16 RX: Nitroglycerin 0.4 mg SL Q5MIN PRN #20 tab.subl 01/08/16 Allergies Allergy/AdvReac Type Severity Reaction Status Date / Time oxycodone [From Percocet] AdvReac Itching Verified 07/03/18 17:57 All systems ED: reviewed and negative except as stated. Constitutional: Denies: fever Cardiovascular: Denies: chest pain Respiratory: Reports: cough, dyspnea. 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 - Social History Smoking Status: Current every day smoker Smokeless Tobacco Status: No Alcohol use: Reports: none Drug use: Reports: none Physical Exam - General Limitations: no limitations General appearance: alert, in no apparent distress, cachectic, other (Chronically ill) - Head Head exam: atraumatic, normocephalic, normal inspection - Eye Eye exam: Present: normal appearance, PERRL, EOMI - ENT ENT exam: normal exam - Neck Neck exam: Present: normal inspection - Chest Chest inspection: Present: normal inspection, symmetric chest wall rise - Respiratory Respiratory exam: Present: wheezes (Left sided expiratory), accessory muscle use, prolonged expiratory phase. Absent: respiratory distress - Cardiovascular Cardiovascular exam: Present: regular rate, normal rhythm. Absent: systolic murmur - Abdominal Exam Abdominal exam: Present: soft, Non-Tender - Extremities Exam Extremities exam: Present: normal inspection. Absent: pedal edema - Back Exam Back exam: Present: normal inspection - Neurological Exam Neurological exam: Present: alert, oriented X3, CN II-XII intact - Skin Skin exam: Present: warm, dry, intact, normal color Course Course Narrative: Patient seen and examined. Patient is alert however the patient is difficult historian. Does have known history of COPD. On exam the patient does have a symmetric breath sounds. Patient will get aerosols steroids cardiopulmonary evaluation. Disposition pending. - Reevaluation(s) Reevaluation #1: Patient's resting comfortably. Lung exam is improved. Time: 05:20 Reevaluation #2: Patient attempted to use the rest room and hit her head against the commode. Patient will require laceration repair as well as CT of the head. Ice for hematoma. Time: 05:42 Reevaluation #3: Patient's blood pressure was elevated. Will dose with labetalol. Time: 06:23 Vital Signs Temperature 97.6 F 10/29/18 03:48 Pulse Rate 78 10/29/18 03:48 Respiratory Rate 16 10/29/18 03:48 Blood Pressure 203/94 10/29/18 03:48 O2 Sat by Pulse Oximetry 99 10/29/18 03:48 Temperature 97.6 F 10/29/18 03:48 Pulse Rate 89 10/29/18 06:15 Respiratory Rate 15 10/29/18 06:15 Blood Pressure 190/97 10/29/18 06:15 O2 Sat by Pulse Oximetry 98 10/29/18 06:15 Oxygen Delivery Oxygen Delivery Room Air Procedures - Laceration Laceration 1 Site: face Size (cm): 2 Description: linear Depth: simple, single layer, [id number] Local Anesthetic: with epi Amount of Anesthesia Used (mL): 3 Pre-repair: wound explored, irrigated extensively, extensive debridement Skin layer closed with: nylon Size: 4-0 Number of sutures/samir: 4 Technique: simple, interrupted Medical Decision Making - MDM Narrative Medical decision making narrative: Patient care for concerns of difficulty breathing. Patient does have long- standing history of COPD. Concerns initially for subjective dyspnea. Patient does appear to have increased work of breathing at bedside that appears to be intermittent. Patient was exam reveals wheezing. Patient is elderly and there is concerns of possible ACS equivalent. Patient was treated with aerosols and steroids. Patient states that her breathing did improve however given the patient's history and extensive COPD with possible ACS equivalent the patient will be admitted for continued cardiopulmonary evaluation. Patient was given azithromycin for possible COPD exacerbation. Patient medication list reviewed. Patient does live at home with some family. However the patient likely has an element of dementia and is not able to provide a very thorough or accurate history. Given these findings and the patient's comorbidities patient will be admitted for continued respiratory support monitoring. Patient attempted ambulatory trial to the restroom however the patient fell striking her head. Incident report was filed. Patient does have a history of being on aspirin and Plavix. Patient does have hematoma sutures. - Lab Data Lab results reviewed: Yes I reviewed the patient's lab results. Result diagrams: 10/30/18 04:04 10/30/18 04:04 Lab Results 10/29/18 10/29/18 10/29/18 Range/Units 04:10 04:10 04:10 WBC 13.1 H (4.3-11.1) K/mcL RBC 4.84 (3.82-4.97) M/mcL Hgb 14.1 (11.5-15.4) g/dL Hct 42.6 (35.3-44.9) % MCV 88.0 (83.0-100.0) fL MCH 29.1 (28.0-33.3) pg MCHC 33.1 (31.6-35.5) g/dL RDW 13.6 (11.5-14.5) % Plt Count 305 (140-400) K/mcL MPV 9.4 (9.4-12.4) fL Immature Gran % 0.4 (0-4) % Seg Neutrophils % 82.9 % Lymphocytes % 8.5 % Monocytes % 8.0 % Eosinophils % 0.1 % Basophils % 0.1 % Neutrophils # 10.8 H (1.6-8.9) K/mcL Lymphocytes # 1.1 (0.6-4.6) K/mcL Monocytes # 1.0 (0.0-1.3) K/mcL Eosinophils # 0.0 (0.0-0.6) K/mcL Basophils # 0.0 (0.0-0.2) K/mcL Sodium Cancelled Potassium Cancelled Chloride Cancelled Carbon Dioxide Cancelled BUN Cancelled Creatinine Cancelled Est GFR ( Amer) Cancelled Est GFR (Non-Af Amer) Cancelled BUN/Creatinine Ratio Cancelled Glucose Cancelled Calculated Osmolality Cancelled Calcium Cancelled Magnesium Cancelled Troponin I < 0.03 (< 0.04) ng/mL B-Natriuretic Peptide 205 H (Less than 100) pg/mL Specimen Rejected 10/29/18 10/29/18 Range/Units 04:10 04:50 WBC (4.3-11.1) K/mcL RBC (3.82-4.97) M/mcL Hgb (11.5-15.4) g/dL Hct (35.3-44.9) % MCV (83.0-100.0) fL MCH (28.0-33.3) pg MCHC (31.6-35.5) g/dL RDW (11.5-14.5) % Plt Count (140-400) K/mcL MPV (9.4-12.4) fL Immature Gran % (0-4) % Seg Neutrophils % % Lymphocytes % % Monocytes % % Eosinophils % % Basophils % % Neutrophils # (1.6-8.9) K/mcL Lymphocytes # (0.6-4.6) K/mcL Monocytes # (0.0-1.3) K/mcL Eosinophils # (0.0-0.6) K/mcL Basophils # (0.0-0.2) K/mcL Sodium 132 L Potassium 4.0 Chloride 95 L Carbon Dioxide 27 BUN 13 Creatinine 0.76 Est GFR ( Amer) > 60 Est GFR (Non-Af Amer) > 60 BUN/Creatinine Ratio 17 Glucose 137 H Calculated Osmolality 276 L Calcium 9.8 Magnesium 1.8 Troponin I (< 0.04) ng/mL B-Natriuretic Peptide (Less than 100) pg/mL Specimen Rejected Hemolyzed - Radiology Data Radiology results reviewed: Yes I reviewed the patient's radiology results. Chest X-Ray 10/29/18 03:47 IMPRESSION: Previously seen left basilar airspace disease has nearly resolved. Hyperinflated lungs could reflect deep inspiratory effort versus obstructive small airways disease such as asthma or COPD. Moderate size gas-filled hiatus hernia. D/ / Constantin Collado / Constantin Collado Interpreting Provider: Constantin Collado - EKG Data EKG #1 EKG attestation: Yes I reviewed and interpreted this EKG. EKG shows normal: sinus rhythm Rate: normal Rhythm: NSR [place]/QRS: normal QTc: other (539) When compared to previous EKG there are: no significant changes S.B.A.Yo. - S.Abril Situation: Demographics Background: Presenting Complaint Assessment: Vital Signs, Course and respsone to treatment, Patient/Family Expectation Recommendation: Barrier(s) to disposition, Recommendation based on pending studies, treatments, or consults [facility] Report Given to: Dr. Anne Schmid Repor Time: 06:20 Attestation Statement - Attestation Attestation: Resident Attestation: I examined this patient and my medical decision making was reviewed with the Resident Physician. I agree with the documented findings, disposition and treatment plan as described except to the extent set forth below. We independently had [id number] contact with the patient. Patient arrived via EMS for complaints of shortness of breath. Patient does have a history of COPD. On exam she states that she has trouble getting a full breath of air in. She does have some associated wheezing throughout the anterior posterior lung redman. Patient's breathing is slightly abnormal as she appears to have breath-holding spells where she then states that she cannot get her breath but then takes a deep breath after short breath-holding. Patient will undergo further evaluation for dyspnea. Steroids and breathing treatments as well as reevaluation's. Mild distress secondary to feeling that she cannot get a full breath, breath- holding spells associated with then full deep breaths, mild anterior and posterior wheezing worse on the left, no significant peripheral edema.
[2018-10-29 04:23] LABS: Basophils % 0.1 %; Eosinophils % 0.1 %; Hematocrit 42.6 % (35.3-44.9); Hemoglobin 14.1 g/dL (11.5-15.4); Immature Granulocytes % 0.4 % (0-4); Lymphocytes # 1.1 K/mcL (0.6-4.6); Lymphocytes % 8.5 %; Mean Corpuscular HGB Conc 33.1 g/dL (31.6-35.5); Mean Corpuscular Hemoglobin 29.1 pg (28.0-33.3); Mean Platelet Volume 9.4 fL (9.4-12.4); Neutrophils # 10.8 K/mcL (1.6-8.9); Platelet Count 305 K/mcL (140-400); Red Blood Count 4.84 M/mcL (3.82-4.97); Red Cell Distribution Width 13.6 % (11.5-14.5); Segmented Neutrophils % 82.9 %
[2018-10-29 05:07] LABS: BUN/Creatinine Ratio 17 (6-26); Blood Urea Nitrogen 13 mg/dL (8-23); Calcium 9.8 mg/dL (8.6-10.3); Carbon Dioxide 27 mEq/L (23-29); Chloride 95 mEq/L (98-107); Glucose 137 mg/dL (70-105); Magnesium 1.8 mg/dL (1.6-2.6); Osmolality,Calculated 276 (280-300); Sodium 132 mEq/L (136-145); eGFR For Non-African Americans > 60 (> 60)
[2018-10-29] MEDS ORDERED: Azithromycin 250 MG TABLET PO ONE (05:12)
[2018-10-29] MEDS ORDERED: Lidocaine/EPI 1:100k 1% 30 ML VIAL ONE (05:50)
[2018-10-29] MEDS ORDERED: *HR* Labetalol 20 MG/4 ML SYRINGE IVP ONE (06:21)
[2018-10-29] MEDS ORDERED: Naloxone 0.4 MG/ML INJ IVP PRN (09:14)
--- NOTE | 2018-10-29 09:19 | Internal Med History&Physical ---
Date of Encounter: 10/29/18 Time of Encounter: 09:19 Internal Medicine - H&P: HPI Chief complaint: Dyspnea Admitted From: Emergency Dept Plans for Post Hospital Care: Home History of present illness: Ms. Ronquillo is a 72 year old female past medical history of hypertension COPD CAD dementia presented to [facility] ED after experiencing dyspnea she was a 9% on room air lab work did show slightly elevated white count chest x-ray shows previously seen left basilar airspace disease nearly resolved I briefly lungs reflex deep and tore a effort versus obstructive small airway disease such as asthma or COPD moderate size gas-filled hiatus hernia. She was given steroids as well as breathing treatments and antibiotics While in the ER the patient went to the bathroom and had an episode where she fell and struck her head Sustained a left frontal scalp laceration requiring sutures. CT of head was obtained which showed a large left frontal scalp contusion no fractures she was admitted for further workup of COPD exacerbation. Currently patient is sitting up in bed does not appear to be any respiratory distress she does have a large ecchymosis to left side of face left eye swollen shut and orbits is ecchymotic. She has a small laceration above left eyebrow with sutures. She is oriented to name and place. I explained to complain to the patient who verbalized understanding Past Med Surg Social Fam HX - Past Medical History Medical history: arthritis, asthma, COPD, GERD, hyperlipidemia, hypertension, myocardial infarction, osteoporosis Psychiatric history: anxiety, depression - Past Surgical History Surgical History: appendectomy Additional surgical history: cardiac cath x 1stent - Social History Smoking Status: Current every day smoker Smokeless Tobacco Status: No Alcohol use: none Drug use: none - Family History Father Living Status: Hx Family Cardiac Disorders: Yes Hx Family Cancer: Yes Internal Medicine - H&P: Meds Albuterol Neb [Proventil Neb] 2.5 mg IH Q4H PRN 01/05/16 [History] Albuterol Sulfate [Proair Hfa] 2 puff IH Q6H PRN 01/05/16 [History] Calcium Carbonate/Vitamin D3 [Calcium 250+D Tablet] 1 tab PO BID 01/05/16 [History] Fluticasone/Salmeterol [Advair 250-50 Diskus] 1 puff IH BID 01/05/16 [History] Aspirin 81 mg PO DAILY #30 tab.chew 01/08/16 [Rx] Clopidogrel [Plavix] 75 mg PO DAILY #30 tablet 01/08/16 [Rx] Nitroglycerin 0.4 mg SL Q5MIN PRN #20 tab.subl 01/08/16 [Rx] Atorvastatin [Lipitor] 40 mg PO HS 04/07/17 [History] Bupropion HCl [Wellbutrin Xl] 300 mg PO DAILY 07/03/18 [History] Memantine HCl 10 mg PO DAILY 07/03/18 [History] Multivitamin [One Daily Essential] 1 each PO DAILY 07/03/18 [History] Donepezil [Aricept] 10 mg PO DAILY 10/29/18 [History] predniSONE [PredniSONE] 5 - 40 mg PO AD 10/29/18 [History] Allergy/AdvReac Type Severity Reaction Status Date / Time oxycodone [From Percocet] AdvReac Itching Verified 07/03/18 17:57 ROS unobtainable: due to mental status All Systems PM: A 10-system review of systems was performed and is negative for pertinent findings except as documented above in the HPI. - Constitutional Vitals: Temp Pulse Resp BP Pulse Ox 97.6 F 76 16 180/101 97 10/29/18 03:48 10/29/18 08:45 10/29/18 08:45 10/29/18 08:45 10/29/18 08:45 General appearance: Present: A&O X 2 Exam: . - Head Head exam: Present: atraumatic, normocephalic - Expanded Head Exam Head exam expanded: Present: hematoma, laceration - Eye Eye exam: Present: periorbital swelling, periorbital tenderness, conjuntiva pink, sclera anicteric Additional comments: Patient unable to open left eye she has ecchymosis and left orbit is edematous - Neck Neck exam general surgery: Present: supple, trachea midline. Absent: lymphadenopathy - Respiratory Respiratory exam: Present: decreased breath sounds, prolonged expiratory phase. Absent: accessory muscle use, rales, rhonchi, wheezes - Cardiovascular Cardiovascular exam: Present: RRR, +S1, +S2. Absent: diastolic murmur, gallop, rubs, systolic murmur - GI/Abdominal GI/Abdominal exam: Present: normal bowel sounds, soft, no peritoneal signs. Absent: distended, tenderness - Extremities Exam Extremities exam: Present: warm, radial pulses palpable and symmetrical. Absent: calf tenderness, cyanotic, pedal edema - Neurological Exam Neurological exam: Present: CN II-XII intact, no focal deficits. Absent: pronater drift, facial droop, speech deficit - Skin Skin exam: Present: dry, intact Internal Med - H&P Results - Labs CBC & Chem 7: 10/29/18 04:10 10/29/18 04:10 Labs: Short CBC 10/29/18 Range/Units 04:10 WBC 13.1 H (4.3-11.1) K/mcL Hgb 14.1 (11.5-15.4) g/dL Hct 42.6 (35.3-44.9) % Plt Count 305 (140-400) K/mcL Neutrophils # 10.8 H (1.6-8.9) K/mcL BMP 10/29/18 10/29/18 04:10 04:10 Sodium Cancelled 132 L Potassium Cancelled 4.0 Chloride Cancelled 95 L Carbon Dioxide Cancelled 27 BUN Cancelled 13 Creatinine Cancelled 0.76 Glucose Cancelled 137 H Calcium Cancelled 9.8 Cardiac Enzymes 10/29/18 Range/Units 04:10 Troponin I < 0.03 (< 0.04) ng/mL - EKG Data EKG shows normal: sinus rhythm - EKG Data EKG comments: 10/29/18 18:05 Prolonged QTc interval of 539 - Impressions ITS Impressions Chest X-Ray 10/29/18 03:47 IMPRESSION: Previously seen left basilar airspace disease has nearly resolved. Hyperinflated lungs could reflect deep inspiratory effort versus obstructive small airways disease such as asthma or COPD. Moderate size gas-filled hiatus hernia. D/ / Constantin Collado / Constantin Collado Interpreting Provider: Constantin Collado Head CT 10/29/18 05:25 IMPRESSION: Large left frontal scalp contusion. No underlying displaced calvarial fracture or acute intracranial abnormality. Included globes and orbits are intact. D/ / Constantin Collado / Constantin Collado Interpreting Provider: Constantin Collado - Assessment and plan (1) COPD exacerbation Current Visit: Yes Status: Acute Assessment and plan: Patient has a history of COPD presents with increasing shortness of breath on exertion. Oxygen titrated to maintain SaO2 greater than 88% Prednisone 40 mg daily steroid burst Bronchodilators as needed Rocephin IV and azithromycin was given in the ER how patient does have a prolonged QT interval so we will hold that for now (2) Syncope Current Visit: Yes Status: Suspected Assessment and plan: Patient sustained a fall in the bathroom and sure if this was a syncopal episode or mechanical fall we will perform a syncopal workup. Check echo carotid Doppler as well as orthostatic vital signs placed on fall precautions Qualifiers: Syncope type: unspecified Qualified Code(s): R55 - Syncope and collapse (3) DVT prophylaxis Current Visit: Yes Status: Acute Assessment and plan: SCDs (4) Fall Current Visit: Yes Status: Acute Assessment and plan: Patient sustained a fall while in the bathroom and short this was a syncopal episode or mechanical we will perform syncopal workup. Continue with neurological checks since patient did strike her head. CT of head was negative for any bleed or fracture. Place patient on fall precautions Consult PT and OT for evaluation patient is living at home alone Qualifiers: Encounter type: initial encounter Qualified Code(s): W19.XXXA - Unspecified fall, initial encounter (5) Laceration Current Visit: Yes Status: Acute Assessment and plan: Patient sustained laceration after syncopal episode in the bathroom. She has had 3 stitches which we will monitor keep open to air at this time (6) HTN (hypertension) Current Visit: Yes Status: Chronic Assessment and plan: Patient did have elevated blood pressure on arrival review of records does not show any antihypertensive. We will give hydralazine when necessary for systolic greater than 180. We will initiate patient on lisinopril 5 mg in the a.m. continue to monitor closely. Qualifiers: Hypertension type: unspecified Qualified Code(s): I10 - Essential (primary) hypertension (7) Dementia Current Visit: No Status: Acute Assessment and plan: Patient has a history of dementia and is on medical mean as well as Aricept. She does have a prolonged QT which we will hold Aricept for now Qualifiers: Dementia type: unspecified type Dementia behavioral disturbance: without behavioral disturbance Qualified Code(s): F03.90 - Unspecified dementia without behavioral disturbance (8) EKG abnormality Current Visit: Yes Status: Acute Assessment and plan: The patient has QTC prolongation on EKG-QTC 539 previous EKG obtained and June 2017 shows QTC of 482-patient is on Aricept for her dementia which we will hold. She also received a dose of azithromycin in the ER we will hold azithromycin and give Rocephin for COPD exacerbation. Continue to monitor EKG in the a.m. Continuous cardiac monitoring - Time Spent With Patient Total time spent is greater than 50% in coordination of care (as documented) at patient's floor/unit and/or counseling patient:
[2018-10-29] MEDS: Acetaminophen 325 MG TABLET PO PRN (14:08)
--- NOTE | 2018-10-29 15:27 | Electrocardiograph Report ---
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
[2018-10-29] MEDS: Ipratropium/Albuterol Neb 3 ML IH SCH ×2 (19:35→23:53)
[2018-10-29] MEDS: Budesonide/Formoterol 80/4.5 MDI IH SCH (19:35)
[2018-10-29] MEDS: cefTRIAXone 1,000 MG in Water for inj. (sterile) 20 ML 10 ML IVP SCH (21:16)
[2018-10-30] MEDS: Ipratropium/Albuterol Neb 3 ML IH SCH ×6 (04:23→23:45)
[2018-10-30] MEDS: Acetaminophen 325 MG TABLET PO PRN (04:39)
[2018-10-30 04:44] LABS: Basophils % 0.1 %; Eosinophils % 0.2 %; Hematocrit 39.4 % (35.3-44.9); Hemoglobin 13.5 g/dL (11.5-15.4); Immature Granulocytes % 0.4 % (0-4); Lymphocytes # 2.2 K/mcL (0.6-4.6); Lymphocytes % 17.2 %; Mean Corpuscular HGB Conc 34.3 g/dL (31.6-35.5); Mean Corpuscular Hemoglobin 29.7 pg (28.0-33.3); Mean Corpuscular Volume 86.6 fL (83.0-100.0); Mean Platelet Volume 9.6 fL (9.4-12.4); Monocytes # 1.3 K/mcL (0.0-1.3); Monocytes % 10.1 %; Neutrophils # 9.1 K/mcL (1.6-8.9); Platelet Count 328 K/mcL (140-400); Red Blood Count 4.55 M/mcL (3.82-4.97)
[2018-10-30 05:03] LABS: BUN/Creatinine Ratio 16 (6-26); Blood Urea Nitrogen 14 mg/dL (8-23); Calcium 9.4 mg/dL (8.6-10.3); Carbon Dioxide 30 mEq/L (23-29); Chloride 94 mEq/L (98-107); Glucose 85 mg/dL (70-105); Osmolality,Calculated 272 (280-300); Sodium 131 mEq/L (136-145); eGFR For Non-African Americans > 60 (> 60)
[2018-10-30] MEDS: Budesonide/Formoterol 80/4.5 MDI IH SCH ×2 (07:26→20:25)
[2018-10-30] MEDS ORDERED: Azithromycin 500 MG in D5% in Water 250 ML IVPB SCH (09:00)
[2018-10-30] MEDS: Multivit/Ca/Min/Fe/FA 1 TAB TABLET PO SCH (09:03)
[2018-10-30] MEDS: Aspirin 81 MG TAB.CHEW PO SCH (09:03)
[2018-10-30] MEDS: Cholecalciferol (D-3) 1,000 UNIT TABLET PO SCH (09:04)
[2018-10-30] MEDS: BuPROPion XL (24 HR) 150 MG TABLET PO SCH (09:04)
[2018-10-30] MEDS: predniSONE 20 MG TABLET PO SCH (09:04)
--- NOTE | 2018-10-30 12:35 | Internal Med Progress Note ---
<Andrew Hannah P - Last Filed: 10/30/18 15:49> Hospitalist Progress Note - Encounter Date of Encounter: 10/30/18 Time of Encounter: 10:45 - Subjective Interval History: 72 year old female past medical history of arthritis, asthma, COPD, GERD, hyperlipidemia, hypertension, myocardial infarction, osteoporosis presented to ED for dyspnea on exertion,dizziness, generalized weakness, h/o fall. The patient stated that she fell at restroom while she felt dizzy and hit her head. Head CT:Large left frontal scalp contusion,no calvarial fracture or acute intracranial abnormality with globes and orbits are intact.Chest x-ray showed :previously seen left basilar airspace disease with hyperinflated lungs could be obstructive small airways disease such as asthma or COPD. labs at ED showed elevated total count 13.1 and neutrophil 10.8 sodium 132 and potassium 4.0, BNP 205. Today during my bedside visit, the patient was lying comfortably on the bed, she did not have any new complaints. Well oriented to time place and person and answering question appropriately. she stated that her symptom has been much better since admission. She was concerned about progressing bluish-black discoloration around both eye. She denied any chest pain, elevated shortness of breath, feeling dizzy, any episode of vertigo. Her vitals were stable (temperature 98 F, blood pressure 141/80, sat 96% in room air). - Exam Vitals: Temp Pulse Resp BP Pulse Ox 98.4 F 85 17 141/80 96 10/30/18 10:38 10/30/18 10:38 10/30/18 11:47 10/30/18 10:38 10/30/18 11:47 Exam: Gen: Alert, awake , Oriented to time,place and person HEENT; Scalp laceration ++., Bluish black discoularion in right and left eye (left> right ) extending up to proximal neck. Chest: Diminished BS b/l, No crackles, No rales, No wheezing Heart: S1S2+ RRR No Murmurs Abd: Soft, NT, BS + No organomegaly Ext: No edema, pulses are palpable, no tenderness Neuro: No focal neuro deficits Psych: Normal mood Skin: No rash - Assessment and Plan (1) Fall Current Visit: Yes Status: Acute Assessment and Plan: Patient sustained a fall while in the bathroom after she had a syncopal episode CT of head was negative for any bleed or fracture. patient on fall precautions, multiple scalp laceration and progressive periorbital hematoma , will take sometime to resolve. Consulted PT and OT for evaluation as patient is living at home alone, will assess neurological status. (2) Dementia Current Visit: Yes Status: Acute Assessment and Plan: She is chronic patient of dementia, she is on Mementine & Donepezil (3) COPD (chronic obstructive pulmonary disease) Current Visit: No Status: Chronic Assessment and Plan: Patient has a history of COPD presents with increasing shortness of breath on ex ertion. She is a chronic smoker,Chest Xray :Previously seen left basilar airspace disease has nearly resolved,hyperinflated lungs could reflect deep inspiratory effort vs obstructive small airways disease such as asthma or COPD At ED ,She is on ceftriaxone IV, holded azithromycin because of QT prolongation. Nebulization, Symbicort puff, oral prednisone, IV antibiotic: Ceftriaxone IV and oxygen Symptomatically improved since admission (4) Syncope Current Visit: Yes Status: Acute Assessment and Plan: The patient has history of feeling dizzy and fall at rest room, it might be because of dropping of her blood pressure or postural hypotension. We will regularly monitor her blood pressure, postural drop and her antihypertensive medications status. (5) HTN (hypertension) Current Visit: Yes Status: Chronic Assessment and Plan: The patient has history of high blood pressure on medication, the patient was admitted while she presents to ED, her recent blood pressure is 141/80, she is on hydralazine and lisinopril (6) Coronary artery disease Current Visit: No Status: Chronic Assessment and Plan: The patient chronic patient of CAD , she is on aspirin, Plavix, Lipitor (7) Laceration of scalp Current Visit: Yes Status: Acute Assessment and Plan: The patient fell at rest-room after feeling dizzy , CT head : no acute intracranial abnormality and fracture. Multiple lacerations and progressive periorbital hemotoma is present , needs a few days to get resolved .No any worsening neurological symptoms. (8) QT prolongation Current Visit: Yes Status: Acute Assessment and Plan: The patient has QTC prolongation on EKG: EKG QTC 539 and previously 1 was 482 1 years back. We have hold azithromycin is it might be the cause of progression of QT. (9) Pneumonia Current Visit: Yes Status: Acute Assessment and Plan: The patient has shortness of breath and chest discomfort X-ray chest showed bibasilar airspace disease, suggestive of early pneumonia We have put her on IV antibiotic; IV ceftriaxone - Time Spent with Patient Total time spent is greater than 50% in coordination of care (as documented) at patient's floor/unit and/or counseling patient: Internal Medicine: Result - Labs CBC & Chem 7: 10/30/18 04:04 10/30/18 04:04 Labs: Short CBC 10/30/18 Range/Units 04:04 WBC 12.6 H (4.3-11.1) K/mcL Hgb 13.5 (11.5-15.4) g/dL Hct 39.4 (35.3-44.9) % Plt Count 328 (140-400) K/mcL Neutrophils # 9.1 H (1.6-8.9) K/mcL BMP 10/30/18 04:04 Sodium 131 L Potassium 4.0 Chloride 94 L Carbon Dioxide 30 H BUN 14 Creatinine 0.90 Glucose 85 Calcium 9.4 Consult Discharge Plan - Plan Referrals: NONE,PCP [Primary Care Provider] - <Mario Bazan - Last Filed: 10/30/18 16:05> Hospitalist Progress Note - Encounter Date of Encounter: 10/30/18 - Exam Vitals: Temp Pulse Resp BP Pulse Ox 98.3 F 90 17 121/61 96 10/30/18 15:47 10/30/18 15:47 10/30/18 15:47 10/30/18 15:47 10/30/18 15:47 - Assessment and Plan (1) HTN (hypertension) Current Visit: Yes Status: Chronic (2) Dementia Current Visit: No Status: Acute (3) Fall Current Visit: Yes Status: Acute (4) Laceration Current Visit: Yes Status: Acute (5) COPD exacerbation Current Visit: Yes Status: Acute (6) Syncope Current Visit: Yes Status: Suspected (7) DVT prophylaxis Current Visit: Yes Status: Acute (8) EKG abnormality Current Visit: Yes Status: Acute - Time Spent with Patient Total time spent is greater than 50% in coordination of care (as documented) at patient's floor/unit and/or counseling patient: Internal Medicine: Result - Labs CBC & Chem 7: 10/30/18 04:04 10/30/18 04:04 Labs: Short CBC 10/30/18 Range/Units 04:04 WBC 12.6 H (4.3-11.1) K/mcL Hgb 13.5 (11.5-15.4) g/dL Hct 39.4 (35.3-44.9) % Plt Count 328 (140-400) K/mcL Neutrophils # 9.1 H (1.6-8.9) K/mcL BMP 10/30/18 04:04 Sodium 131 L Potassium 4.0 Chloride 94 L Carbon Dioxide 30 H BUN 14 Creatinine 0.90 Glucose 85 Calcium 9.4 - Impressions Impressions Echocardiogram 10/30/18 17:51 Impressions: Sinus tachycardia. LVEF 55%. LV segmental wall motion abnormality as seen in the diagram below. Mild left ventricular diastolic dysfunction. Normal right ventricular structure and function. Extra-cardiac structure partially compressing left atrium possibly due to hiatal hernia. Consider dedicated CT chest imaging. Mild mitral regurgitation. No pulmonary hypertension. Left Ventricular Wall Motion: Rest Echo Findings The basal inferior, mid inferior lateral and basal inferior lateral steen were hypokinetic. All other wall segments showed normal motion. Findings: Study Quality * Technically adequate exam. ECG Findings * Sinus tachycardia. Left Ventricle * Mild left ventricular diastolic dysfunction. * LVEF 55%. * Normal LV chamber size and wall thickness. * No LVOTO. Right Ventricle * Normal right ventricular structure and function. Left Atrium * Mildly dilated left atrium. In some views, it appears partially compressed. Right Atrium * Normal right atrial size. Mitral Valve * Normal mitral valve structure. * No mitral stenosis. * Mild mitral regurgitation. Aortic Valve * No aortic regurgitation. * Aortic valve not well visualized. * No aortic stenosis. Tricuspid Valve * Trace tricuspid regurgitation. * Normal tricuspid valve structure. * Estimated RA pressure is 3 mmHg. * Estimated RVSP is 32 mmHg. * No pulmonary hypertension. Pulmonic Valve * Pulmonic valve is not well visualized. * No pulmonic stenosis. * No pulmonic regurgitation. Pulmonary Artery * Pulmonary artery not well visualized. Aorta * Normally sized aortic root. Pericardium * There is no pericardial effusion present. Interatrial Septum * Interatrial septum not well evaluated. IVC * Normal IVC dimensions and inspiratory collapse. - Attending Attestation I examined this patient and my medical decision-making was reviewed with the Resident Physician Dr. Hannah. I agree with the documented findings, disposition and treatment plan as described except to the extent set forth below. Ms. Ronquillo is a 72 year old female past medical history of hypertension COPD, CAD, dementia presented to [facility] ED after experiencing dyspnea. She was given steroids as well as breathing treatments and antibiotics While in the ER the patient went to the bathroom and had an episode where she fell and struck her head Sustained a left frontal scalp laceration requiring sutures. CT of head was obtained which showed a large left frontal scalp contusion no fractures she was admitted for further workup of COPD exacerbation. Pt stated she is feeling better today. She is breathing comfortably on room air. She still has a large ecchymosis to left side of face left eye swollen . She has a small laceration above left eyebrow with sutures. She is oriented to name and place. Chest: Diminished BS b/l mild wheezing, no crackles Heart: S1S2+ RRR No murmurs a/p 1. Acute COPD exacerbation 2. Acute bronchitis cont empirical abx Rocephin PO Steroids + bronchodilators 3. Syncope mostly orthostatic will follow-up on echocardiogram and carotid Doppler 4. Prolonged QT interval will repeat EKG today 5. Fall with Facial laceration 6. Scalp hematoma Improving PT / OT eval Patient does need to stay in the hospital more than 2 midnights due to her complex medical problems. So will change her to full admission today. I did review my colleague BETINA Thomas's H & P including HPI, PMH, PSH, FH, SH, and ROS no changes noticed <Andrew Hannah P - Last Filed: 10/30/18 15:49> (3) COPD (chronic obstructive pulmonary disease) Qualifiers: COPD type: COPD with acute exacerbation Qualified Code(s): J44.1 - Chronic obstructive pulmonary disease with (acute) exacerbation (5) HTN (hypertension) Qualifiers: Hypertension type: unspecified Qualified Code(s): I10 - Essential (primary) hypertension (6) Coronary artery disease Qualifiers: Coronary Disease-Associated Artery/Lesion type: [place] artery [place] vs. transplanted heart: [place] heart Associated angina: without angina Qualified Code(s): I25.10 - Atherosclerotic heart disease of [place] coronary artery without angina pectoris <Mario Bazan - Last Filed: 10/30/18 16:05> (1) HTN (hypertension) Qualifiers: Hypertension type: unspecified Qualified Code(s): I10 - Essential (primary) hypertension (2) Dementia Qualifiers: Dementia type: unspecified type Dementia behavioral disturbance: without behavioral disturbance Qualified Code(s): F03.90 - Unspecified dementia without behavioral disturbance (3) Fall Qualifiers: Encounter type: initial encounter Qualified Code(s): W19.XXXA - Unspecified fall, initial encounter (6) Syncope Qualifiers: Syncope type: unspecified Qualified Code(s): R55 - Syncope and collapse
[2018-10-30 17:27] LABS: Calcium 9.5 mg/dL (8.6-10.3); Potassium 4.2 mEq/L (3.5-5.1)
[2018-10-30] MEDS: cefTRIAXone 1,000 MG in Water for inj. (sterile) 20 ML 10 ML IVP SCH (20:02)
[2018-10-31] MEDS: Ipratropium/Albuterol Neb 3 ML IH SCH ×3 (03:50→11:20)
[2018-10-31] MEDS: Acetaminophen 325 MG TABLET PO PRN (05:07)
[2018-10-31] MEDS: Budesonide/Formoterol 80/4.5 MDI IH SCH (07:26)
--- NOTE | 2018-10-31 08:30 | Discharge Summary ---
<Andrew Hannah P - Last Filed: 10/31/18 11:35> - NOTES TO OUTPATIENT PROVIDER Notes to Outpatient Provider: *The patient was follow-up with her primary care provider within a week. Orders not resulted at time of discharge: Pending orders 10/30/18 06:00 EKG [ECG 12 lead ECG] [ECG] AM 0600 Date of Encounter: 10/31/18 Time of Encounter: 08:00 - Discharge Diagnosis (1) Fall Priority: Primary Status: Acute Qualifiers: Encounter type: initial encounter Qualified Code(s): W19.XXXA - Unspecified fall, initial encounter (2) Dementia Priority: Secondary Status: Chronic Qualifiers: Alzheimer's disease onset: unspecified onset Dementia behavioral disturbance: without behavioral disturbance Qualified Code(s): G30.9 - Alzheimer's disease, unspecified; F02.80 - Dementia in other diseases classified elsewhere without behavioral disturbance (3) COPD (chronic obstructive pulmonary disease) Priority: Primary Status: Chronic Qualifiers: COPD type: COPD with acute exacerbation Qualified Code(s): J44.1 - Chronic obstructive pulmonary disease with (acute) exacerbation (4) Syncope Priority: Primary Status: Acute Qualifiers: Syncope type: unspecified Qualified Code(s): R55 - Syncope and collapse (5) Pneumonia Priority: Primary Status: Acute Qualifiers: Pneumonia type: due to unspecified organism Qualified Code(s): J18.9 - Pneumonia, unspecified organism (6) HTN (hypertension) Priority: Secondary Status: Chronic Qualifiers: Hypertension type: unspecified Qualified Code(s): I10 - Essential (primary) hypertension (7) Coronary artery disease Priority: Secondary Status: Chronic Qualifiers: Coronary Disease-Associated Artery/Lesion type: [place] artery [place] vs. transplanted heart: [place] heart Associated angina: without angina Qualified Code(s): I25.10 - Atherosclerotic heart disease of [place] coronary artery without angina pectoris (8) Laceration of scalp Priority: Primary Status: Chronic Qualifiers: Encounter type: subsequent encounter Qualified Code(s): S01.01XD - Laceration without foreign body of scalp, subsequent encounter (9) QT prolongation Priority: Primary Status: Resolved Hospital course: Ms. Ronquillo is a 72 year old female with past medical history of arthritis, asthma, COPD, GERD, hyperlipidemia, hypertension, myocardial infarction, osteoporosis presented to ED for exertional dyspnea,feeling dizzy,generalized weakness, occasional fall in the past .The patient stated that she fell at restroom after she felt dizzy and hit her head. Head CT done in ED:Large left frontal scalp contusion,no calvarial fracture or acute intracranial abnormality with globes and orbits are intact.Chest x-ray showed :previously seen left basilar airspace disease with hyperinflated lungs could be obstructive small airways disease such as asthma or COPD.Lab reports done in ED elevated total count 13.1 and neutrophil 10.8, sodium 132 and potassium 4.0, BNP 205. The patient was admitted in inpatient and started IV antibiotic ceftriaxone and oral prednisone .Echo done in inpatient showed : LVEF 55%. LV segmental wall motion abnormality & mild left ventricular diastolic dysfunction.Carotid Doppler showed :Right proximal ICA has a severe, 60-79% stenosis. Left proximal ICA has a moderate, 40-59% stenosis. After admission the patient has been significantly improved, her dyspnea and weakness has been better. She still has multiple small scalp lacerations and bluish discoloration around both eye after fall injury and progressively getting better. She is clinically stable, her vitals are normal. We are planning to discharge her and she will follow-up with her primary care provider within a week. - Time Spent with Patient Total time spent providing and/or coordinating discharge services: - Discharge Medications Prescriptions: Cefdinir [Omnicef] 300 mg PO BID 3 Days #6 capsule Home Medications: RX: Albuterol Neb [Proventil Neb] 2.5 mg IH Q4H PRN 01/05/16 [History] RX: Albuterol Sulfate [Proair Hfa] 2 puff IH Q6H PRN 01/05/16 [History] RX: Calcium Carbonate/Vitamin D3 [Calcium 250+D Tablet] 1 tab PO BID 01/05/16 [History] RX: Fluticasone/Salmeterol [Advair 250-50 Diskus] 1 puff IH BID 01/05/16 [History] RX: Aspirin 81 mg PO DAILY #30 tab.chew 01/08/16 [Rx] RX: Clopidogrel [Plavix] 75 mg PO DAILY #30 tablet 01/08/16 [Rx] RX: Nitroglycerin 0.4 mg SL Q5MIN PRN #20 tab.subl 01/08/16 [Rx] RX: Atorvastatin [Lipitor] 40 mg PO HS 04/07/17 [History] RX: Bupropion HCl [Wellbutrin Xl] 300 mg PO DAILY 07/03/18 [History] RX: Memantine HCl 10 mg PO DAILY 07/03/18 [History] RX: Multivitamin [One Daily Essential] 1 each PO DAILY 07/03/18 [History] RX: Donepezil [Aricept] 10 mg PO DAILY 10/29/18 [History] RX: predniSONE [PredniSONE] 5 - 40 mg PO AD 10/29/18 [History] Cefdinir [Omnicef] 300 mg PO BID 3 Days #6 capsule 10/31/18 [Rx] Allergies/Adverse Reactions: Allergy/AdvReac Type Severity Reaction Status Date / Time oxycodone [From Percocet] AdvReac Itching Verified 07/03/18 17:57 Date of admission: 10/30/18 09:54 Primary care physician: PCP NONE Consults: 10/29/18 09:16 Consult to Occupational Therapy [CONS] Routine Comment: Evaluate, develop and implement POC Reason for Consult: weakness Does patient have active BEDREST order?: No Is patient medically & hemodynamically stable?: Yes Patient assessed for mobility or mobilized this visit?: No Consult to Physical Therapy [CONS] Routine Comment: Evaluate, develop and implement POC Reason for Consult: weakness Does patient have active BEDREST order?: No Is patient medically & hemodynamically stable?: Yes Patient assessed for mobility or mobilized this visit?: No - Constitutional Vitals: Temp Pulse Resp BP Pulse Ox 98.4 F 97 12 137/55 93 10/31/18 05:06 10/31/18 05:06 10/31/18 07:28 10/31/18 05:06 10/31/18 07:28 General appearance: Present: A&O X 2, A&O X 3, no acute distress, answers questions appropriately Exam: Gen: Alert, awake , Oriented to time,place and person HEENT; Scalp laceration ++., Bluish black discoularion in right and left eye (left> right ) extending up to proximal neck. Chest: Diminished BS b/l, No crackles, No rales, No wheezing Heart: S1S2+ RRR No Murmurs Abd: Soft, NT, BS + No organomegaly Ext: No edema, pulses are palpable, no tenderness Neuro: No focal neuro deficits Psych: Normal mood Skin: No rash - Patient Status Disposition: Home Health Service Condition: Fair Functional capacity at discharge: uses cane/walker Overall status at discharge: patient is progressing back to baseline - Discharge Instructions Instructions: Fall Prevention (DC) Follow Up With: Kobi Palumbo MD [Partnered Physician] - 11/06/18 9:45 am <Mario Bazan - Last Filed: 10/31/18 16:12> Orders not resulted at time of discharge: Pending orders 10/30/18 06:00 EKG [ECG 12 lead ECG] [ECG] AM 0600 Date of Encounter: 10/31/18 - Discharge Diagnosis (1) HTN (hypertension) Status: Chronic Qualifiers: Hypertension type: unspecified Qualified Code(s): I10 - Essential (primary) hypertension (2) Dementia Status: Acute Qualifiers: Dementia type: unspecified type Dementia behavioral disturbance: without behavioral disturbance Qualified Code(s): F03.90 - Unspecified dementia without behavioral disturbance (3) Fall Status: Acute Qualifiers: Encounter type: initial encounter Qualified Code(s): W19.XXXA - Unspecified fall, initial encounter (4) Laceration Status: Acute (5) COPD exacerbation Status: Acute (6) Syncope Status: Suspected Qualifiers: Syncope type: unspecified Qualified Code(s): R55 - Syncope and collapse (7) DVT prophylaxis Status: Acute (8) EKG abnormality Status: Acute Hospital course: Ms. Ronquillo is a 72 year old female - Time Spent with Patient Total time spent providing and/or coordinating discharge services: Date of admission: 10/30/18 09:54 Primary care physician: PCP NONE Consults: 10/29/18 09:16 Consult to Occupational Therapy [CONS] Routine Comment: Evaluate, develop and implement POC Reason for Consult: weakness Does patient have active BEDREST order?: No Is patient medically & hemodynamically stable?: Yes Patient assessed for mobility or mobilized this visit?: No Consult to Physical Therapy [CONS] Routine Comment: Evaluate, develop and implement POC Reason for Consult: weakness Does patient have active BEDREST order?: No Is patient medically & hemodynamically stable?: Yes Patient assessed for mobility or mobilized this visit?: No 10/31/18 11:20 Consult to Instrument Checker [CONS] Routine Reason for SW Consult: need HH - Constitutional Vitals: Temp Pulse Resp BP Pulse Ox 98.2 F 99 17 115/61 96 10/31/18 12:55 10/31/18 09:04 10/31/18 12:55 10/31/18 12:55 10/31/18 12:55 - Attending Attestation I examined this patient and my medical decision-making was reviewed with the Resident Physician Dr. Hannah. I agree with the documented findings, disposition and treatment plan as described except to the extent set forth below. Ms. Ronquillo is a 72 year old female past medical history of hypertension COPD, CAD, dementia presented to [facility] ED after experiencing dyspnea. She was given steroids as well as breathing treatments and antibiotics While in the ER the patient went to the bathroom and had an episode where she fell and struck her head Sustained a left frontal scalp laceration requiring sutures. CT of head was obtained which showed a large left frontal scalp contusion no fractures she was admitted for further workup of COPD exacerbation. Pt stated she is feeling better today. She is breathing comfortably on room air. She still has a large ecchymosis to left side of face left eye swollen . She has a small laceration above left eyebrow with sutures. She is oriented x 3 Chest: Diminished BS b/l mild wheezing, no crackles Heart: S1S2+ RRR No murmurs a/p 1. Acute COPD exacerbation 2. Acute bronchitis Improving mostly bacterial bronchitis switched to PO Abx PO Steroids + bronchodilators 3. Syncope mostly orthostatic 4. Prolonged QT interval Resolved 5. Fall with Facial laceration 6. Scalp hematoma Improving Medically stable to d/c home today Addendum entered and electronically signed by Andrew Hannah 10/31/18 16:25: I am the Author of this note.
[2018-10-31] MEDS: BuPROPion XL (24 HR) 150 MG TABLET PO SCH (08:33)
[2018-10-31] MEDS: predniSONE 20 MG TABLET PO SCH (08:33)
[2018-10-31] MEDS: Aspirin 81 MG TAB.CHEW PO SCH (08:34)
[2018-10-31] MEDS: Cholecalciferol (D-3) 1,000 UNIT TABLET PO SCH (08:34)
[2018-10-31] MEDS: Multivit/Ca/Min/Fe/FA 1 TAB TABLET PO SCH (08:34)
--- NOTE | 2018-10-31 11:34 | Physician Discharge Referral ---
- Diagnosis (1) Fall Priority: Primary Status: Acute (2) Dementia Priority: Primary Status: Chronic (3) COPD (chronic obstructive pulmonary disease) Priority: Primary Status: Chronic (4) Syncope Priority: Primary Status: Acute (5) Pneumonia Priority: Primary Status: Acute (6) HTN (hypertension) Priority: Secondary Status: Chronic (7) Coronary artery disease Status: Chronic (8) Laceration of scalp Priority: Secondary Status: Chronic (9) QT prolongation Priority: Primary Status: Resolved - Respiratory Orders Smoking Cessation: Smoking cessation has been advised. For more information, call the [place] Tobacco Quit Line at 3-376-ORGD-NOW. - Diet/Nutrition Diet/Nutrition Orders: Cardiac - Activity Activity Orders: Walker - Services Needed Following services are medically necessary services: Nursing - Transfer Medications Prescriptions: Cefdinir [Omnicef] 300 mg PO BID 3 Days #6 capsule Home Medications: Albuterol Neb [Proventil Neb] 2.5 mg IH Q4H PRN 01/05/16 [History] Albuterol Sulfate [Proair Hfa] 2 puff IH Q6H PRN 01/05/16 [History] Calcium Carbonate/Vitamin D3 [Calcium 250+D Tablet] 1 tab PO BID 01/05/16 [History] Fluticasone/Salmeterol [Advair 250-50 Diskus] 1 puff IH BID 01/05/16 [History] Aspirin 81 mg PO DAILY #30 tab.chew 01/08/16 [Rx] Clopidogrel [Plavix] 75 mg PO DAILY #30 tablet 01/08/16 [Rx] Nitroglycerin 0.4 mg SL Q5MIN PRN #20 tab.subl 01/08/16 [Rx] Atorvastatin [Lipitor] 40 mg PO HS 04/07/17 [History] Bupropion HCl [Wellbutrin Xl] 300 mg PO DAILY 07/03/18 [History] Memantine HCl 10 mg PO DAILY 07/03/18 [History] Multivitamin [One Daily Essential] 1 each PO DAILY 07/03/18 [History] Donepezil [Aricept] 10 mg PO DAILY 10/29/18 [History] predniSONE [PredniSONE] 5 - 40 mg PO AD 10/29/18 [History] Cefdinir [Omnicef] 300 mg PO BID 3 Days #6 capsule 10/31/18 [Rx] Allergies/Adverse Reactions: Allergy/AdvReac Type Severity Reaction Status Date / Time oxycodone [From Percocet] AdvReac Itching Verified 07/03/18 17:57 Certification: Further, I certify that my clinical findings support that this patient is homebound (i.e. absences from home require considerable and taxing effort and are for medical reasons or zoroastrian services or infrequently or short duration when for other reasons) because: Homebound Reason: Patient requires assistance of a person or device to safely leave home Attestation: My signature below is to certify that this patient is under my care and that I, or nurse practitioner, or a physician's or assistant working with me, has a [id number] encounter with this patient.
[2018-10-31 11:54] LABS: Calcium 9.9 mg/dL (8.6-10.3); Potassium 3.8 mEq/L (3.5-5.1)
[2018-10-31 12:56] VITALS: BP 115/61
== END 2018-10-31 13:43 | disposition home health service (06) | DRG 190 ==
LOC: EMEROOARM 03:38 → 2SOUTHHOLD 03:38 → SUATTDRO 06:32 → 2SOUTHHOLD 06:52
PROVIDERS: ADMIT Internal Medicine; ATTEND Family Medicine